=== PATIENT | male | born 1995 | race Caucasian/White ===

== ENCOUNTER 2021-01-26 12:36 | Emergency (ER) | payer BC ==
--- NOTE | 2021-01-26 13:12 | ERPHSYRPT ---
- History of Present Illness Time Seen by Provider: 01/26/21 13:05 Source: patient, family Exam Limitations: no limitations Patient Subjective Stated Complaint: Pt was moving furniture last night and a 7 foot bookshelf fell on top of his right foot Triage Nursing Assessment: Pt brought to the ER by his girlfriend, randal wnl, rates pain as 3/10, swelling without bruising to the top of the right foot, pt walked into the ER with a slight limp, pulses normal, cap refill normal Physician History: bookcase hit right foot - no other complaints of injury or pain. last tet between 5 and 10 yrd pt wishes update. tender and swollen right dorsal foot , ankle nontender. Method of Injury: direct blow Occurred: yesterday Quality: sharpness, throbbing Severity of Pain-Max: moderate Severity of Pain-Current: moderate Lower Extremities Pain: foot: right Modifying Factors: Improves With: cold therapy, immobilization, movement Allergies/Adverse Reactions: cephalexin [From Keflex] Allergy (Verified 01/26/21 12:48) Sulfa (Sulfonamide Antibiotics) Allergy (Verified 01/26/21 12:48) Home Medications: No Reportable Medications [No Reported Medications] 01/26/21 [History] Travel Risk - International Travel Have you traveled outside of the country in past 3 weeks: No - Coronavirus Screening Are you exhibiting any of the following symptoms?: No Close contact with a COVID-19 positive Pt in past 14-21 Days: No - Vaccine Status Have you recieved a Covid-19 vaccination: No - Review of Systems Constitutional: No Fever, No Chills Eyes: No Symptoms Ears, Nose, & Throat: No Symptoms Respiratory: No Cough, No Dyspnea Cardiac: No Chest Pain, No Edema, No Syncope Abdominal/Gastrointestinal: No Abdominal Pain, No Nausea, No Vomiting, No Diarrhea Genitourinary Symptoms: No Dysuria Musculoskeletal: Injury, Other (swollen/tender right foot.), No Back Pain, No Neck Pain Skin: No Rash Neurological: No Dizziness, No Focal Weakness, No Sensory Changes Psychological: No Symptoms Endocrine: No Symptoms Hematologic/Lymphatic: No Symptoms Immunological/Allergic: No Symptoms All Other Systems: Reviewed and Negative - Past Medical History Pertinent Past Medical History: No Musculoskeletal History: Fractures Other Medical History: fractured elbow - Past Surgical History Past Surgical History: Yes - Social History Smoking Status: Never smoker Exposure to second hand smoke: No Patient Lives Alone: No - Nursing Vital Signs Nursing Vital Signs: Initial Vital Signs Temperature 98.4 F 01/26/21 12:41 Pulse Rate 98 H 01/26/21 12:41 Blood Pressure 141/84 01/26/21 12:41 O2 Sat by Pulse Oximetry 96 01/26/21 12:41 Pain Scale Pain Intensity 3 - Physical Exam General Appearance: alert Eyes, Ears, Nose, Throat Exam: moist mucous membranes Neck Exam: non-tender, supple Cardiovascular/Respiratory Exam: chest non-tender, normal breath sounds, regular rate/rhythm, no respiratory distress Gastrointestinal/Abdominal Exam: non-tender, guarding Back Exam: normal inspection, No vertebral tenderness Hips Exam: bilateral: non-tender, normal inspection, normal range of motion, no evidence of injury Legs Exam: bilateral leg: non-tender, normal inspection, normal range of motion, no evidence of injury Knees Exam: bilateral knee: non-tender, normal inspection, normal range of motion, no evidence of injury Ankle Exam: bilateral ankle: non-tender, normal inspection, normal range of motion, no evidence of injury Foot Exam: right foot: pain, soft tissue tenderness, swelling, left foot: non- tender, normal inspection, normal range of motion, no evidence of injury DTR - Lower Extremities Exam: knee (R): 2+, knee (L): 2+, ankle (R): 2+, ankle (L): 2+ Neuro/Tendon Exam: normal sensation, normal motor functions, normal tendon functions Mental Status Exam: alert, oriented x 3, cooperative Skin Exam: normal color, warm, dry SpO2 Interpretation: normal SpO2: 96 O2 Delivery: Room Air - Course Nursing assessment & vital signs reviewed: Yes - Radiology Exams Right Foot X-ray Interpretation: Reviewed by me, Non-displaced Fracture (questionable transverse , nondisplaced fx right 4 and 5 mets ) Ordered Tests: Active Orders 24 hr Category Date Time Status FOOT (MINIMUM 3 VIEWS) Stat Exams 01/26/21 13:07 Taken Medication Summary Discontinued Medications Generic Name Dose Route Start Last Admin Trade Name Freq PRN Reason Stop Dose Admin Diphtheria/Tetanus/Acell Pertussis 0.5 ml 01/26/21 13:14 01/26/21 13:17 Adacel Vial IM 01/26/21 13:15 0.5 ml .ONCE ONE Administration Diphtheria/Tetanus/Acell Pertussis Confirm 01/26/21 13:16 Adacel Vial Administered 01/26/21 13:17 Dose 0.5 ml IM .STK-MED ONE - Progress Progress: improved, re-examined Counseled pt/family regarding: diagnosis, need for follow-up, rad results - Departure Departure Disposition: Home Clinical Impression: Fracture of metatarsal bone of right foot Condition: Good Critical Care Time: No Instructions: Foot Fracture (DC) Additional Instructions: followup with your Dr early this week for recheck . and to recheck blood pressure as well. We are treating like this could be broken although a definite fracture is not confirmed but suspected. return meantime if any concerns.
[2021-01-26] MEDS ORDERED: Adacel Vial IM ONE ×2 (13:14→13:16)
[2021-01-26 14:29] VITALS: BP 174/81; PULSE 78; O2SAT 97
--- NOTE | 2021-01-26 18:37 | XRAY ---
Indication: Pain. Comparison: None 3 nonweightbearing views right foot obtained. No bony, articular, or soft tissue abnormalities.
== END 2021-01-26 14:30 | disposition home or self-care (01) ==
LOC: ED 12:36
DX: S92.301A Fracture of unspecified metatarsal bone(s), right foot, initial encounter for closed fracture (principal); W22.03XA Walked into furniture, initial encounter; Y93.89 Activity, other specified; Y92.89 Other specified places as the place of occurrence of the external cause
CPT/HCPCS: 73630; 90471; 90715; 99283